=== PATIENT | male | born 1945 | race Asian ===

== ENCOUNTER 2016-03-09 12:31 | Outpatient (CLI) | payer OTHER ==
[~2016-03-09 12:31] MED LIST: AMLO10TA PO; BENA10TA3 PO; CARB/LEVO1 TA3 PO; CLARITIN10 M1 PO; CLARITIN10 MG PO; ESCI10TA PO; FURO20TA67 PO; FURO40TA93 PO; GLYB5TAB65 PO; GLYBURIDE2.5 MG PO; HYDR-2748 PO; LOSA50TA PO; LYRICA150 MG OR; NEURONTIN600 MG PO; NEURONTIN800 MG PO; NIZORAL2 % EX; PROAIR HFA IN; RANI150T78 PO; SPIR25TA66 PO; TAMS0.4C PO; TIZA4TAB5 PO; TRIA0.1C5 EX
== END 2016-03-09 13:31 | disposition home or self-care (01) ==
LOC: RAD 12:31
DX: M25.512 Pain in left shoulder (principal)

== ENCOUNTER 2016-03-14 15:27 | Observation (INO) | payer OTHER ==
[~2016-03-14] VITALS: Ht 170.2 cm; Wt 90.3 kg
[2016-03-14 16:23] LABS: PLATELET COUNT 142 K/uL (142-355)
[2016-03-14 16:57] VITALS: BP 121/73; TEMP 98.3; Ht 170.2 cm; Wt 90.3 kg
[2016-03-14 16:59] LABS: SODIUM 137 mmol/L (136-145)
[2016-03-14 20:00] VITALS: BP 111/88; TEMP 98.2
--- NOTE | 2016-03-14 23:53 | NUR ---
DR. OCHOA IS AWARE THAT PT WILL NOT HAVE CT UNTIL 03/15/16 AT 0700 DUE TO PT ATE TWICE TODAY UPON ADMISSION.
[2016-03-15] VITALS: BP 136/82; TEMP 98.1
[2016-03-15 04:00] VITALS: BP 138/99; TEMP 98
[2016-03-15 08:00] VITALS: BP 161/98; TEMP 97.6
[2016-03-15 10:51] LABS: PLATELET COUNT 120 K/uL (142-355)
[2016-03-15 10:57] LABS: POTASSIUM 4.5 mmol/L (3.6-5.2); SODIUM 139 mmol/L (136-145)
--- NOTE | 2016-03-15 11:00 | NUR ---
DR OCHOA NOTIFIED OF ELEVATED BP. NEW ORDERS GIVEN TO RESTART BP HOME MEDS. WILL RECHECK AND NOTIFY DR OCHOA.
--- NOTE | 2016-03-15 11:30 | NUR ---
BS 0730- 100 BS 1130-88
[2016-03-15 12:00] VITALS: BP 175/94; TEMP 98
[2016-03-15] MEDS ORDERED: METFTAB PO (12:28)
[2016-03-15] MEDS ORDERED: PRAMIPEXOLE0.5 MG PO (12:33)
[2016-03-15] MEDS ORDERED: HYDR10TA47 PO (12:34)
--- NOTE | 2016-03-15 14:53 | NUR ---
bp rechecked at this time, dr alvarez notified
[2016-03-15 16:00] VITALS: BP 156/93; TEMP 98.1
--- NOTE | 2016-03-15 16:17 | NUR ---
DC INSTRUCTIONS GIVEN TO PT. PT V/U. IV DC'D WITH CANNULA INTACT AND SITE CARE PROVIDED. NAD NOTED PT GETTING SHOWER BEFORE LEAVING. INSTRUCTED PT TO CALL FOR ASSISTANCE. PT V/U
--- NOTE | 2016-03-15 17:32 | NUR ---
DC INSTRUCTIONS GIVEN TO AT THIS TIME. INSTRUCTED PT TO NOT TAKE METFORMIN UNTIL SUNDAY DUE TO CT WITH CONTRAST TODAY. PT AND V/U. PT LEFT VIA WC AT THIS TIME
== END 2016-03-15 17:35 | disposition home or self-care (01) ==
LOC: MED/SURG 15:27
PROVIDERS: ADMIT Family Medicine
DX: R10.32 Left lower quadrant pain (principal); K12.1 Other forms of stomatitis; D64.9 Anemia, unspecified; Z41.2 Encounter for routine and ritual male circumcision; D72.819 Decreased white blood cell count, unspecified; D64.89 Other specified anemias; D72.818 Other decreased white blood cell count; I10 Essential (primary) hypertension; R10.84 Generalized abdominal pain; E11.9 Type 2 diabetes mellitus without complications; M62.81 Muscle weakness (generalized); G20 Parkinson's disease
CPT/HCPCS: 36415; 36591; 80053; 80061; 81000; 82607; 82728; 82948; 83735; 84153; 85027; 87804; 96365; 96366; 99220; G0378; G0379; J2175; Q9963

== ENCOUNTER 2016-03-20 17:50 | Emergency (ER) | payer OTHER ==
[~2016-03-20] VITALS: Ht 170.2 cm; Wt 90.3 kg
[~2016-03-20 17:50] MED LIST changes: +HYDR10TA47 PO; +METFTAB PO; +PRAMIPEXOLE0.5 MG PO
[2016-03-20 19:11] LABS: PLATELET COUNT 141 K/uL (142-355)
[2016-03-20 19:21] LABS: POTASSIUM 3.6 mmol/L (3.6-5.2); SODIUM 135 mmol/L (136-145)
[2016-03-20 20:49] VITALS: BP 142/70; TEMP 97.9
== END 2016-03-20 20:50 | disposition home or self-care (01) ==
LOC: ED 17:50
DX: M47.896 Other spondylosis, lumbar region (principal); M54.5 Low back pain; M48.06 Spinal stenosis, lumbar region; M51.86 Other intervertebral disc disorders, lumbar region; M12.88 Other specific arthropathies, not elsewhere classified, other specified site
CPT/HCPCS: 80053; 81000; 85027; 96372; 99283; J1885

== ENCOUNTER 2016-05-02 12:35 | Outpatient (CLI) | payer OTHER | END 2016-05-02 19:23 | disposition home or self-care (01) | LOC: RAD 12:35 | DX: M79.671 Pain in right foot (principal); M79.672 Pain in left foot ==

== ENCOUNTER 2016-05-07 09:42 | Emergency (ER) | payer OTHER ==
[~2016-05-07] VITALS: Ht 170.2 cm; Wt 88.5 kg
[2016-05-07 09:57] VITALS: TEMP 97.6
[2016-05-07 12:29] VITALS: BP 158/92
== END 2016-05-07 12:29 | disposition home or self-care (01) ==
LOC: ED 09:42
DX: J40 Bronchitis, not specified as acute or chronic (principal)
CPT/HCPCS: 87804; 99283

== ENCOUNTER 2016-08-17 09:30 | Emergency (ER) | payer OTHER ==
[~2016-08-17] VITALS: Ht 170.2 cm; Wt 91.6 kg
[2016-08-17 10:23] LABS: PLATELET COUNT 176 K/uL (142-355)
[2016-08-17 10:34] LABS: SODIUM 138 mmol/L (136-145)
[2016-08-17 11:32] VITALS: BP 144/89; TEMP 98.1
== END 2016-08-17 11:32 | disposition home or self-care (01) ==
LOC: ED 09:30
DX: M79.672 Pain in left foot (principal); M79.671 Pain in right foot; M10.9 Gout, unspecified; E11.9 Type 2 diabetes mellitus without complications; R06.02 Shortness of breath
CPT/HCPCS: 36415; 80053; 81000; 83036; 83880; 84550; 85027; 93005; 99283

== ENCOUNTER 2016-11-24 14:22 | Emergency (ER) | payer OTHER ==
[~2016-11-24] VITALS: Ht 170.2 cm; Wt 93.0 kg
[2016-11-24 14:35] VITALS: BP 108/73; TEMP 98.3
== END 2016-11-24 15:20 | disposition home or self-care (01) ==
LOC: ED 14:22
DX: R21 Rash and other nonspecific skin eruption (principal)
CPT/HCPCS: 99281

== ENCOUNTER 2017-12-13 13:37 | Emergency (ER) | payer OTHER ==
[~2017-12-13] VITALS: Ht 157.5 cm; Wt 68.0 kg
[2017-12-13 15:00] VITALS: TEMP 97.8
[2017-12-13 15:08] LABS: PLATELET COUNT 123 K/uL (142-355)
[2017-12-13 17:00] VITALS: BP 142/80
[2018-01-03] MEDS ORDERED: AMLODIPINE BESYLATE PO (14:21)
[2018-01-03] MEDS ORDERED: ASPIR-8181 MG PO (14:21)
[2018-01-03] MEDS ORDERED: BREO ELLIPTA 201 INH INH (14:22)
[2018-01-03] MEDS ORDERED: BENA10TA3 PO (14:22)
[2018-01-03] MEDS ORDERED: CHLORHEXIDINE GLUCON PO (14:24)
[2018-01-03] MEDS ORDERED: DEXILANT60 M1 PO (14:25)
[2018-01-03] MEDS ORDERED: METF500T PO (14:27)
[2018-01-03] MEDS ORDERED: MYRBETRIQ50 MG PO (14:27)
[2018-01-03] MEDS ORDERED: PRAMIPEXOLE1 MG PO (14:28)
[2018-01-03] MEDS ORDERED: TRAMADOL HYDROC50 MG PO (14:29)
[2018-01-03] MEDS ORDERED: SPIRIVA HANDIH18 MCG INH (14:29)
[2018-01-03] MEDS ORDERED: TRIAMCINOLON0.12 TOP (14:30)
[2018-01-03] MEDS ORDERED: VASCEPA1 GM PO (14:30)
[2018-01-06] MEDS ORDERED: DONE5TAB PO (19:30)
[2018-01-06] MEDS ORDERED: ESCI10TA PO (19:31)
[2018-01-06] MEDS ORDERED: RISP0.25 PO (19:31)
[2018-01-06] MEDS ORDERED: CYAN10009 IM ×2 (19:32→19:33)
== END 2017-12-13 17:13 | disposition home or self-care (01) ==
LOC: ED 13:37
DX: R60.9 Edema, unspecified (principal); R06.02 Shortness of breath; R00.1 Bradycardia, unspecified
CPT/HCPCS: 36415; 80053; 82550; 82553; 83880; 84484; 84550; 85027; 93005; 99283; J1885

== ENCOUNTER 2018-01-02 16:35 | Emergency (ER) | payer OTHER ==
[~2018-01-02] VITALS: Ht 157.5 cm; Wt 82.1 kg
[2018-01-02 16:40] VITALS: BP 99/72; TEMP 98.2
[2018-01-03] MEDS ORDERED: AMLODIPINE BESYLATE PO (14:21)
[2018-01-03] MEDS ORDERED: ASPIR-8181 MG PO (14:21)
[2018-01-03] MEDS ORDERED: BENA10TA3 PO (14:22)
[2018-01-03] MEDS ORDERED: BREO ELLIPTA 201 INH INH (14:22)
[2018-01-03] MEDS ORDERED: CHLORHEXIDINE GLUCON PO (14:24)
[2018-01-03] MEDS ORDERED: DEXILANT60 M1 PO (14:25)
[2018-01-03] MEDS ORDERED: METF500T PO (14:27)
[2018-01-03] MEDS ORDERED: MYRBETRIQ50 MG PO (14:27)
[2018-01-03] MEDS ORDERED: PRAMIPEXOLE1 MG PO (14:28)
[2018-01-03] MEDS ORDERED: TRAMADOL HYDROC50 MG PO (14:29)
[2018-01-03] MEDS ORDERED: SPIRIVA HANDIH18 MCG INH (14:29)
[2018-01-03] MEDS ORDERED: TRIAMCINOLON0.12 TOP (14:30)
[2018-01-03] MEDS ORDERED: VASCEPA1 GM PO (14:30)
[2018-01-06] MEDS ORDERED: DONE5TAB PO (19:30)
[2018-01-06] MEDS ORDERED: RISP0.25 PO (19:31)
[2018-01-06] MEDS ORDERED: ESCI10TA PO (19:31)
[2018-01-06] MEDS ORDERED: CYAN10009 IM ×2 (19:32→19:33)
== END 2018-01-02 16:59 ==
LOC: ED 16:35
DX: Z01.30 Encounter for examination of blood pressure without abnormal findings (principal)
CPT/HCPCS: 99281

== ENCOUNTER 2018-01-08 19:43 | Emergency (ER) | payer OTHER ==
[~2018-01-08] VITALS: Ht 167.6 cm; Wt 83.5 kg
[~2018-01-08 19:43] MED LIST changes: +AMLODIPINE BESYLATE PO; +ASPIR-8181 MG PO; +BREO ELLIPTA 201 INH INH; +CHLORHEXIDINE GLUCON PO; +CYAN10009 IM; +DEXILANT60 M1 PO; +DONE5TAB PO; +METF500T PO; +MYRBETRIQ50 MG PO; +PRAMIPEXOLE1 MG PO; +RISP0.25 PO; +SPIRIVA HANDIH18 MCG INH; +TRAMADOL HYDROC50 MG PO; +TRIAMCINOLON0.12 TOP; +VASCEPA1 GM PO
[2018-01-08 20:45] VITALS: BP 134/88; TEMP 98
== END 2018-01-08 20:45 | disposition home or self-care (01) ==
LOC: ED 19:43
DX: S05.02XA Injury of conjunctiva and corneal abrasion without foreign body, left eye, initial encounter (principal); W22.8XXA Striking against or struck by other objects, initial encounter; Y92.89 Other specified places as the place of occurrence of the external cause
CPT/HCPCS: 99283

== ENCOUNTER 2018-05-11 11:09 | Emergency (ER) | payer OTHER ==
[~2018-05-11] VITALS: Ht 167.6 cm; Wt 86.9 kg
[2018-05-11 12:27] LABS: PLATELET COUNT 133 K/uL (142-355)
[2018-05-11 15:58] VITALS: BP 145/86; TEMP 98.4
== END 2018-05-11 15:58 | disposition home or self-care (01) ==
LOC: ED 11:09
PROVIDERS: Emergency Medicine
DX: R60.9 Edema, unspecified (principal)
CPT/HCPCS: 36415; 80053; 81000; 82550; 82553; 83880; 84484; 85027; 85379; 93005; 99283; Q9963

== ENCOUNTER 2018-05-15 18:46 | Outpatient (CLI) | payer OTHER | END 2018-05-15 19:14 | disposition home or self-care (01) | LOC: LAB 18:46 | DX: R60.0 Localized edema (principal) | CPT/HCPCS: 83880 ==

== ENCOUNTER 2018-05-20 11:53 | Emergency (ER) | payer OTHER ==
[~2018-05-20] VITALS: Ht 170.2 cm; Wt 86.8 kg
[2018-05-20] MEDS ORDERED: HYDR25TA60 PO (12:22)
[2018-05-20 15:15] VITALS: BP 105/65; TEMP 97.6
== END 2018-05-20 15:15 | disposition home or self-care (01) ==
LOC: ED 11:53
DX: I87.8 Other specified disorders of veins (principal); Z91.14 Patient's other noncompliance with medication regimen; I50.9 Heart failure, unspecified; F10.10 Alcohol abuse, uncomplicated
CPT/HCPCS: 90715; 99282; J0696; J1885

== ENCOUNTER 2018-06-25 16:04 | Outpatient (CLI) | payer OTHER ==
[~2018-06-25 16:04] MED LIST changes: +ASPIRIN 8181 MG PO; +AZILECT1 MG PO; +CLON1TAB18 PO; +DICL50TA PO; +FOLI1TAB26 PO; +HYDR25TA60 PO; +MIRAPEX1.5 MG PO; +NEURONTIN 100M100 MG PO; +PERIOGARD0.12 % MT; +QUET25TA2 PO; +SINEMET1 TA2 PO; +SPIRONOLACT25 MG PO; +THIA100T8 PO; +TRIA0.1C5 TOP
== END 2018-06-25 16:12 | disposition short-term general hospital (02) ==
LOC: AMB 16:04
DX: S01.01XA Laceration without foreign body of scalp, initial encounter (principal); W18.39XA Other fall on same level, initial encounter; Y92.018 Other place in single-family (private) house as the place of occurrence of the external cause
CPT/HCPCS: A0425; A0427

== ENCOUNTER 2018-06-25 16:12 | Emergency (ER) | payer OTHER ==
[~2018-06-25] VITALS: Ht 170.2 cm; Wt 86.2 kg
[2018-06-25 17:12] LABS: PLATELET COUNT 223 K/uL (142-355)
[2018-06-25 17:16] LABS: POTASSIUM 4.8 mmol/L (3.6-5.2)
[2018-06-25 18:45] VITALS: BP 113/60; TEMP 98
== END 2018-06-25 18:51 | disposition home or self-care (01) ==
LOC: ED 16:12
PROVIDERS: Family Medicine
PROC: 0HQ0XZZ Repair Scalp Skin, External Approach (ICD-10-PCS; principal; 2018-06-25)
DX: S01.01XA Laceration without foreign body of scalp, initial encounter (principal); W10.8XXA Fall (on) (from) other stairs and steps, initial encounter; Y92.89 Other specified places as the place of occurrence of the external cause
CPT/HCPCS: 36415; 80053; 85027; 99283

== ENCOUNTER 2018-07-04 18:44 | Outpatient (CLI) | payer OTHER ==
[2018-07-05] MEDS ORDERED: PRAMIPEXOLE1.5 MG PO (01:42)
[2018-07-05] MEDS ORDERED: RASAGILINE MESYL1 MG PO (01:55)
[2018-07-11] MEDS ORDERED: QUET100T2 PO (14:34)
[2018-07-11] MEDS ORDERED: MULTTAB52 PO (14:36)
[2018-07-11] MEDS ORDERED: ZINC220C4 PO (14:36)
[2018-07-11] MEDS ORDERED: ASCO500T18 PO (14:36)
== END 2018-07-04 18:46 | disposition short-term general hospital (02) ==
LOC: AMB 18:44
DX: I95.89 Other hypotension (principal); R41.82 Altered mental status, unspecified
CPT/HCPCS: A0425; A0427

== ENCOUNTER 2018-07-04 18:54 | Observation (INO) | payer OTHER ==
[2018-07-04] VITALS (8 sets, daily range): BP systolic 86–171; BP diastolic 53–92; TEMP 97.7–99.1; Ht 170.2 cm; Wt 86.2 kg
[~2018-07-04] VITALS: Ht 170.2 cm; Wt 86.2 kg
[2018-07-04 19:47] LABS: PLATELET COUNT 151 K/uL (142-355)
[2018-07-04 19:48] LABS: POTASSIUM 5.3 mmol/L (3.6-5.2); SODIUM 137 mmol/L (136-145)
--- NOTE | 2018-07-04 23:28 | NUR ---
07/04/18 2200 PT TO ROOM 1110 VIA STRETCHER FROM ER,PT IS ALERT TALKING AND SMILING IT IS HARD TO UNDERSTAND HIM BUT IS ABLE TO COMMUINCATE WITH STAFF.ASSISTED TO BED WITH ASSISTANCE PT IS ABLE TO GET OFF STRETCHER AND MOVE ONTO BED.PT PANTS AND SOCKS ARE DIRTY AND HAS SOME SAND ON THEM.ER NURSE SHOWED ME 11 ORION IN BACK OF HEAD WHERE PATIENT HAS BEEN HERE RECENTLY DUE TO FALL ER PHYSICAN AWARE. BED ALARM ON BED CALL LIGHT WITHIN REACH. 07/04/18 2300 SNACK PROVIDED AT BEDSIDE TOLERATED WELL.CC
[2018-07-05] VITALS: BP 132/80; TEMP 97.9
[2018-07-05] MEDS ORDERED: PRAMIPEXOLE1.5 MG PO (01:42)
[2018-07-05] MEDS ORDERED: RASAGILINE MESYL1 MG PO (01:55)
--- NOTE | 2018-07-05 03:35 | NUR ---
07/05/18199 PT IS OUT OF BED WITH BED ALARM GOING OFF WENT TO ROOM CALLED FOR ASSISTANCE FROM PCT.PT IS PUTTING ON HIS CLOTHES STATES HE IS LEAVING AND GOING TO HAVE A FISH TIERNEY.PATIENT REFUSED TO GET BAQCK IN BED OR STAY IN BED.WE TRY TO ASSIST HIM TO SIT DOWN OR TALK WITH HIM BUT HE IS AGITATED AND CONTINUES TO SAY HE IS LEAVING.I TOLD THE PCT THAT I WILL CALL AND SEE WHAT WE NEED TO DO.CC 07/05/18219 DR. OCHOA NOTIFIED TOLD HER PATIENT WILLNOT STAY IN ROOM IS TRYING TO GO INTO OTHER PATIENTS ROOMS.AND THAT HE IS THROWING HIS ARMS AROUNDS AND COMING UP THE HALLWAY WITH PCT.SHE SAID TO CALL [facility] AND SEE IF THEY WILL ACCEPT PATIENT THAT ALL I NEED TO DO IS GIVE THEM REPORT IF THEY ACCEPT HIM BUT THEY MAY NOT. 07/05/18224 [facility] NOTIFIED AND SAID SHE WOULD CONTACT HER SUPERVISIOR BECAUSE HE WILL NEED TO BE A 1013 AND MEDICALLY CLEARED BEFORE THEY CAN ACCEPT PATIENT. IN THE MEANTIME PT RAN DOWN THE [facility] CLOSE TO ER WITH NURSE MEAGAN AND PCT ALEM THEY SAID HE WAS TRYING TO GET OUT WINDOW.SO THEY WERE ABLE TO GET HIM INTO THE ER.DR. RHODES WAS NOTIFIED OF SITUATION WITH PATIENT.CC 07/05/18244 DR. RHODES CALLED TO FLOOR EXPLAINED SITUATION WITH HER SHE SAID TO GIVE HALDOL 5MG IM AT THIS TIME.CC
--- NOTE | 2018-07-05 03:59 | NUR ---
07/05/18 1701 PT IS CURRENTLY LYING IN BED RESTING BED ALARM IS ON.CC
--- NOTE | 2018-07-05 04:31 | NUR ---
07/05/18 0430 RESTING QUEITLY WITH EYES CLOSED NAD NOTED.CC
--- NOTE | 2018-07-05 06:14 | NUR ---
Patient was admitted with Dehydration, Hypotension, Acute CRF and Mild CHF and is on 2000 calorie ada diet plan and is 5'7" at 190 lbs. IBW 148+/-10%, kcal - 2000, pro 67-77 grams and fluids for IBW 2000 ml per day but only as tolerated d/t dx. as stated. BMI at 29.75 overweight. Recommendations: 1-Increase fluids as tolerated only d/t dehydartion, acute CRF and mild CHF 2-Add Renal and this will decrease the na for CHF as well and may want to recommend only using MUS fats (canola and olive oils).
[2018-07-05 08:00] VITALS: BP 144/84; TEMP 97.6
[2018-07-05 08:22] LABS: POTASSIUM 5.5 mmol/L (3.6-5.2)
[2018-07-05 08:40] LABS: PLATELET COUNT 148 K/uL (142-355)
--- NOTE | 2018-07-05 11:20 | NUR ---
CALLED REPORT TO OLYA RAMIREZ RN [facility]. PT IS BEING CARRIED OVER VIA WC BY VINNIE WHITE. PT HAS A 22G RAC WITH NS GOING AT 100ML/HR. PT TO KEEP IV PER ANICETO HERNANDEZ FOR FLUID REHYDRATION. PT ALERT, ORIENTED TO SELF, REORIENTED TO PLACE, TIME, AND SITUATION.
== END 2018-07-05 11:30 | disposition other institution (70) ==
LOC: ED 18:54 → MED/SURG 21:04 → ED 21:04 → MED/SURG 21:07
PROVIDERS: Family Medicine; ADMIT Family Medicine
DX: E86.0 Dehydration (principal); G20 Parkinson's disease; F02.80 Dementia in other diseases classified elsewhere, unspecified severity, without behavioral disturbance, psychotic disturbance, mood disturbance, and anxiety; E11.22 Type 2 diabetes mellitus with diabetic chronic kidney disease; I12.9 Hypertensive chronic kidney disease with stage 1 through stage 4 chronic kidney disease, or unspecified chronic kidney disease; N18.4 Chronic kidney disease, stage 4 (severe); R53.81 Other malaise; J44.9 Chronic obstructive pulmonary disease, unspecified; I95.89 Other hypotension
CPT/HCPCS: 80053; 81000; 82550; 83735; 84100; 84484; 85027; 93005; 96360; 99220; 99284; G0378; J1630

== ENCOUNTER 2018-11-07 13:30 | Emergency (ER) | payer OTHER ==
[~2018-11-07] VITALS: Ht 170.2 cm; Wt 77.1 kg
[~2018-11-07 13:30] MED LIST changes: +ALUMSUS6 PO; +ASCO500T18 PO; +HALO5INJ3 IM; +LORA2INJ21 IM; +MULTTAB52 PO; +ONDA4TAB3 PO; +PANTOPRAZOLE 40MG TA PO; +PRAMIPEXOLE1.5 MG PO; +QUET100T2 PO; +RASAGILINE MESYL1 MG PO; +TYLENOL325 MG PO; +ZINC220C4 PO
[2018-11-07 14:50] LABS: PLATELET COUNT 168 K/uL (142-355)
[2018-11-07 14:56] LABS: POTASSIUM 3.6 mmol/L (3.6-5.2)
[2018-11-07 16:34] VITALS: BP 148/76; TEMP 98.7
== END 2018-11-07 16:34 | disposition home or self-care (01) ==
LOC: ED 13:30
PROVIDERS: Emergency Medicine
DX: R60.1 Generalized edema (principal); D64.89 Other specified anemias; M25.512 Pain in left shoulder
CPT/HCPCS: 80053; 82272; 82550; 84484; 84550; 85027; 93005; 99283

== ENCOUNTER 2018-11-26 15:59 | Emergency (ER) | payer OTHER ==
[~2018-11-26] VITALS: Ht 170.2 cm; Wt 77.1 kg
[2018-11-26 16:40] VITALS: BP 123/70; TEMP 99
== END 2018-11-26 17:20 | disposition home or self-care (01) ==
LOC: ED 15:59
DX: I10 Essential (primary) hypertension (principal)
CPT/HCPCS: 99281

== ENCOUNTER 2018-12-31 16:09 | Outpatient (CLI) | payer OTHER | END 2018-12-31 20:21 | disposition home or self-care (01) | LOC: RAD 16:09 | DX: R10.84 Generalized abdominal pain (principal) ==

== ENCOUNTER 2019-01-03 11:35 | Emergency (ER) | payer OTHER ==
[~2019-01-03] VITALS: Ht 170.2 cm; Wt 85.7 kg
[2019-01-03 11:45] VITALS: TEMP 97.9
[2019-01-03 14:00] VITALS: BP 154/69
== END 2019-01-03 14:07 | disposition home or self-care (01) ==
LOC: ED 11:35
PROC: 09C47ZZ Extirpation of Matter from Left External Auditory Canal, Via Natural or Artificial Opening (ICD-10-PCS; principal; 2019-01-03)
DX: H92.02 Otalgia, left ear (principal); T16.2XXA Foreign body in left ear, initial encounter
CPT/HCPCS: 99283; J7040